=== PATIENT | female | born 1975 | race Caucasian/White ===

== ENCOUNTER → 2021-09-15 | Outpatient (CLI) | payer OTHER, SELFPAY ==
--- NOTE | 2021-09-14 15:30 | EMB_PTH ---
PATIENT: SVETA TOSCANO LOC: [facility] U#:[id number] AGE/SX: 45/F ROOM: RE09/15/[address]: Dr. Lamberto Orlando MD : 1975 BED: DIS: 09/15/2021 SPEC #: [id number] RECD: 09/14/21 17:02 STATUS: MICAH SELENE #: [id number] LIDA: 09/14/21 15:[address]: Lamberto Orlando DEPT: SURGICAL PATHOLOGY RECD BY: Savi Bradshaw Tissues: Endometrium, NOS Procedures: Surgery Specimen Level IV HEADER OPERATION: Endometrial biopsy PRE-OP DIAGNOSIS: N92.0 TISSUE SUBMITTED: Endometrial biopsy MICROSCOPIC DIAGNOSIS Endometrial biopsy: Early secretory endometrium. EDMOND:ernie 09/16/2021 MICROSCOPIC DESCRIPTION Slides are reviewed. GROSS DESCRIPTION Received in fixative is one container labeled with the patient's name and designated endometrial biopsy. The specimen consists of multiple irregular fragments of pink soft tissue that in aggregate measure 2.5 x 2 x 0.1 cm. The specimen is totally submitted in one cassette. / SJ:rg 09/15/2021 TC:4 CPT: 43253
== END | disposition home or self-care (01) ==
LOC: LABSPEC 09:01
PROVIDERS: Referring Provider Obstetrics & Gynecology; Visit Provider Obstetrics & Gynecology
DX: N92.0 Excessive and frequent menstruation with regular cycle (principal)
CPT/HCPCS: 88305

== ENCOUNTER → 2022-03-20 | Outpatient (CLI) | payer OTHER, SELFPAY ==
[2022-03-20 13:32] LABS: Hematocrit 39.6 % (37-47); Hemoglobin 13.2 g/dL (12.0-15.0); Mean Corp Hgb Conc 33.3 g/dL (32-36); Mean Corpuscular Hgb 32.8 pg (27.0-32.0); Mean Corpuscular Volume 98.3 fL (81-99); Mean Platelet Vol. 10.3 fl (6.2-12.0); Platelet Count 274 K/mm3 (150-450); RBC Distribution Width CV 12.8 % (11.6-14.6); RBC Distribution Width SD 46.1 fl (35.1-43.9); Red Blood Count 4.03 M/mm3 (4.2-5.4); White Blood Count 4.7 K/mm3 (4.4-11.0)
[2022-03-20 14:02] LABS: Follicle Stimulating Hormone 7.3 mIU/mL; Luteinizing Hormone 6.2 mIU/mL; Prolactin 2.9 ng/mL; T4 Free Direct 0.73 ng/dL (0.76-1.46); Thyroid Stim Hormone (TSH) 6.48 uIU/mL (0.358-3.74)
== END | disposition home or self-care (01) ==
LOC: WOBLAB 12:04
PROVIDERS: Visit Provider Student in an Organized Health Care Education/Training Program
DX: N93.9 Abnormal uterine and vaginal bleeding, unspecified (principal)
CPT/HCPCS: 36415; 83001; 83002; 84146; 84439; 84443; 85027

== ENCOUNTER → 2022-07-04 | Outpatient (CLI) | payer OTHER, SELFPAY ==
[2022-07-04 15:24] LABS: T4 Free Direct 1.01 ng/dL (0.76-1.46); Thyroid Stim Hormone (TSH) 3.61 uIU/mL (0.358-3.74)
[2022-07-06 15:33] LABS: Thyroid Peroxidase AB 108 IU/mL (0-34)
== END | disposition home or self-care (01) ==
LOC: WOBLAB 13:57
PROVIDERS: Visit Provider Student in an Organized Health Care Education/Training Program
DX: E03.9 Hypothyroidism, unspecified (principal)
CPT/HCPCS: 36415; 83001; 83002; 84439; 84443; 86376

== ENCOUNTER → 2022-10-31 | Outpatient (CLI) | payer OTHER, SELFPAY ==
[2022-10-31 11:18] LABS: Thyroid Stim Hormone (TSH) 7.75 uIU/mL (0.358-3.74)
== END | disposition home or self-care (01) ==
LOC: WOBLAB 10:03
PROVIDERS: Visit Provider Student in an Organized Health Care Education/Training Program
DX: E03.9 Hypothyroidism, unspecified (principal)
CPT/HCPCS: 36415; 84439; 84443

== ENCOUNTER 2025-04-08 08:04 | Day surgery (SDC) | payer OTHER, SELFPAY ==
[2025-04-08] VITALS (7 sets, daily range): BP systolic 108–118; BP diastolic 70–82; PULSE 70–77; RESP 16; TEMP 36.1–36.3; O2SAT 99–100; BMI 32.3
[2025-04-08] MEDS: Lactated Ringers 1,000 ML 15 ML IV (08:24)
--- NOTE | 2025-04-08 08:52 | HP.PCM_ITS ---
[facility] - General General Date of Admission: 04/08/25 Date of Service: 04/08/25 Chief Complaint: Abdominal pain HPI Narrative MARIANNA TOSCANO, is a 49 F who presents [Chief Complaint: abd pain Referred from primary care provider due to abdominal pain and bloating. Patient been on omeprazole for 1 month without relief. Patient endorsing about 6 years of upset stomach intermittently. She has diarrhea 2-3 times per week. Specific triggers include milk products. She has associated nausea and abdominal cramping. She also has epigastric pain for which she was treated with 1 month of omeprazole. She is no longer having epigastric pain. She denies blood in her stool or other alarm symptoms. She has never had a colonoscopy. She denies family history of colon cancer but notes that her father was diagnosed with Crohn's disease in his early 80s. ] [facility] Medical History Wears dentures Wears glasses History of steroid therapy Back pain History of echocardiogram History of stress test Cardiology follow-up encounter History of irregular heartbeat Trigger finger of right hand Finger pain, right Migraine Back problem Tubal occlusion Resting tremor Frantz's thyroiditis Multiple thyroid nodules Hypothyroid IBS (irritable bowel syndrome) Bloating Abdominal pain Home Medications ?Medication ?Instructions ?Recorded ?Last Taken ?Type levothyroxine 125 mcg capsule 125 mcg PO QDAY 02/09/25 04/08/25 History Allergy/AdvReac Type Severity Reaction Status Date / Time No Known Allergies Allergy Verified 04/08/25 08:21 Family History Father Crohn's disease Heart disease CVA (cerebral vascular accident) Thyroid disorder Crohn's colitis Mother Arthritis Thyroid disorder Tremor Dementia Sister Thyroid disorder Brother Thyroid disorder Surgical History History of cardiac catheterization H/O foot surgery Social History Smoking Status: Never smoker alcohol intake: never substance use type: does not use do you feel safe at home: Yes ROS Constitutional Constitutional: Denies fatigue, fever(s), poor appetite, weight gain or weight loss Gastrointestinal Gastrointestinal: Denies belching, bloating, change in bowel habits, change in stool character, chewing difficulty, coffee ground emesis, constipation, cramping, diarrhea, dyspepsia, dysphagia, early satiety, excessive flatus, fecal incontinence, heartburn, hematemesis, hematochezia, hemorrhoids, loose stools, melena, nausea, odynophagia, rectal bleeding, tenesmus, vomiting or weight changes Vital Signs Vital Signs Vital Signs: 04/08/25 08:21 04/08/25 08:21 04/08/25 08:21 Temperature 97.4 F L Temperature Source Temporal Pulse Rate 74 Respiratory Rate 16 Respiratory Pattern Normal Blood Pressure 113/82 H Blood Pressure Mean 92 Blood Pressure Source Monitor Blood Pressure Position Semi-Fowlers Blood Pressure Location Left Arm Baseline BP 113/82 Pulse Ox 100 Oxygen Delivery Method Room Air Weight Weight: 200 lb 9.93 oz Body Mass Index (BMI) 32.3 Physical Exam Const alert, oriented x3, no apparent distress and healthy appearing General Appearance: cooperative GI normal to inspection, nondistended, normoactive bowel sounds, soft to palpation, non-tender and non-distended Percussion: normal to percussion Rectal Exam: deferred Assessment & Plan Assessment/Plan (1) IBS (irritable bowel syndrome): (2) Abdominal pain: (3) Bloating: PLAN: Assessment and Plan Assessment and Plan (1) Abdominal pain: Status: Acute (2) IBS (irritable bowel syndrome): Status: Acute (3) Bloating: Status: Acute Plan: Marianna is a 49-year-old female patient with past medical history of thyroid disease here today for evaluation of GI symptoms over the past 6 years. Patient has complaints of intermittent flares of diarrhea happening 2-3 times per week typically after consuming dairy products. She has associated epigastric pain, abdominal pain and nausea. She denies alarm features such as blood in her stool or weight loss. She does note that her father was diagnosed with Crohn's disease but did not have symptoms. She denies family history of colon cancer. She has never had a colonoscopy. Patient will undergo colonoscopy and EGD for assessment of her lower and upper GI tract. Patient was agreeable to proceed will consider further workup and/or treatment pending results. - Colonoscopy - EGD - Follow-up after procedures
--- NOTE | 2025-04-08 08:58 | PCM.PRE.AN2 ---
ASA Classification* ASA Classification ASA Classification: 2 Assessment & Plan Anesthesia* Anesthesia Assessment Anesthesia Assessment: Discussed sedation and/or anesthesia options, risks, benefits, and alternatives with patient/parents/legal guardian/POA. Questions invited. The patient/parents/legal guardian/POA seems to understand and agrees to proceed with anesthesia plan. Reviewed the physical assessment, medical history, allergy history and patient home medications list prior to surgery/procedure/anesthetic and documented any changes. Performed airway and anesthesia risk assessments. Anesthesia Type Anesthesia Type: MAC History Source History Obtained from:: Patient and Chart Anesthesia Focused Assessment* Temperature: 97.4 F Pulse Rate: 74 Blood Pressure: 113/82 Respiratory Rate: 16 Pulse Ox: 100 Oxygen Delivery Method: Room Air Airway Assessment Mouth opens: >3 cm Mallampati Score: III Teeth Condition: Dentures (Patient has full upper and lower dentures. They will come out.) Neck Range of motion (ROM): Limited ROM (Slight Decrease) Labs Anesthesia Preop lab: CBC WBC, (4.4-11.0) 4.7 K/mm3 03/20/22, 12:05 RBC, (4.2-5.4) 4.03 M/mm3 L 03/20/22, 12:05 Hgb, (12.0-15.0) 13.2 g/dL 03/20/22, 12:05 Hct, (37-47) 39.6 % 03/20/22, 12:05 Plt Count, (150-450) 274 K/mm3 03/20/22, 12:05 CHEMISTRY TSH, (0.358-3.74) 7.75 uIU/mL H 10/31/22, 10:04 COAG Pre-Assessment Diagnosis/Proposed Procedure Planned Operative Procedure(s): COLONOSCOPY, EGD Anesthesia History Anesthesia History - voip technician: Anesthesia History - voip technician Hx Hospitalization No 04/07/25 08:47 Any Problems With Anesthesia Yes: SOB AFTER TUBAL 04/07/25 08:47 PROCEDURE FELT LIKE COULDN' T BREATHE Cholinesterase deficiency No 04/07/25 08:47 You/Your Family Experience No 04/07/25 08:47 fever (hyperthermia) with Relationship Recent Exposure to Contagious No 04/08/25 08:21 Disease Does patient have nerve No 04/07/25 08:47 stimulator Patient instructed to have device shut off --Does patient have Pacemaker No 04/08/25 08:21 or ICD? When Was Last Pacemaker Check QUESTION #4 FULL TEXT: You/Your Family Experience fever (hyperthermia) with Anesthesia Last Oral Intake Last Oral intake: Last Oral Intake NPO since 05:30 04/08/25 08:21 Meds taken in AM with sips of Yes 04/08/25 08:21 water? Meds patient instructed to LEVOTHYROXINE 04/08/25 08:21 take am of surgery Any additional information?: Yes NPO since: 05:30 (Patient had coffee at 5:30 AM.) Meds taken in AM with sips of water?: Yes PONV PONV - voip technician: PONV - voip technician Female Yes 04/07/25 08:47 HX of Motion Sickness No 04/07/25 08:47 HX of N/V After Surgery No 04/07/25 08:47 Non-Smoker Yes 04/07/25 08:47 Duration of Surgery greater No 04/07/25 08:47 than 60 minutes Number of Risk Factors 2 04/07/25 08:47 PONV Score Moderate Risk 04/07/25 08:47 Height & Weight Height & Weight: Anesthesia: Height & Weight Height 5 ft 6 in 04/08/25 08:21 Weight: 91 kg 04/08/25 08:21 Body Mass Index (BMI) 32.3 04/08/25 08:21 Respiratory Assessment Respiratory Assessment - voip technician: Respiratory Tract Infection Hx - voip technician Hx Respiratory Tract Infection No 04/07/25 08:47 STOP Sleep Apnea STOP Sleep Apnea - voip technician: STOP Sleep Apnea - voip technician Hx Hypertension No 04/07/25 08:47 Hx Sleep Apnea No 04/07/25 08:47 CPAP BIPAP Do you snore loudly (louder No 04/07/25 08:47 than talking or can be heard Do you often feel tired/ No 04/07/25 08:47 fatigued/ sleepy during daytime? Has anyone observed you stop No 04/07/25 08:47 breathing during sleep? STOP Results Negative 04/07/25 08:47 QUESTION #5 FULL TEXT : Do you snore loudly (louder than talking or can be heard through closed doors)? Tobacco Use History Tobacco Use History - voip technician: Tobacco Use History - voip technician Tobacco Use Smoking Status Never smoker 04/07/25 08:47 Hx Tobacco Use No 04/07/25 08:47 Years Smoking Packs Smoked per Day Smoking Cessation Date was within the last 15 years Hx Smoking Cessation Date Hx Smoking Cessation Counseling Hematologic Medial History Hematologic Hx - voip technician: Hematologic Medical Hx - unloader Hx of Blood Transfusion No 04/07/25 08:47 Hx of Transfusion in last 3 No 04/07/25 08:47 Months Date of Last Transfusion (if within last 3 months) Ever experience any problems No 04/07/25 08:47 with transfusion(s)? Specify any problems Hx of Preganancy in last 3 No 04/07/25 08:47 Months Nurse Filling Out Transfusion [email or web address] 04/07/25 08:47 & Questions: Date: 04/07/25 04/07/25 08:47 Time: 08:51 04/07/25 08:47 Patient unable to answer at this time (ie. confused, unrespo /Reproduction History /Reproductive History - voip technician: /Reproductive Hx- voip technician Hx Now No 04/07/25 08:47 Gestational Age (in weeks): EDC: Hx Hx Para Hx Section SAB No 04/07/25 08:47 Does the father of the baby or his family experience fever w Father of the baby Malignant Hypertension history comment Active Medications Active Medications: Current Medications Generic Name Dose Route Start Last Admin Trade Name Freq PRN Reason Stop Dose Admin Lactated Ringer's 1,000 mls @ 15 mls/hr 04/08/25 08:15 04/08/25 08:24 IV 15 mls/hr .Q48H PARESH Administration PFSH Medical History Wears dentures Wears glasses History of steroid therapy Back pain History of echocardiogram History of stress test Cardiology follow-up encounter History of irregular heartbeat Trigger finger of right hand Finger pain, right Migraine Back problem Tubal occlusion Resting tremor Frantz's thyroiditis Multiple thyroid nodules Hypothyroid IBS (irritable bowel syndrome) Bloating Abdominal pain Home Medications ?Medication ?Instructions ?Recorded ?Last Taken ?Type levothyroxine 125 mcg capsule 125 mcg PO QDAY 02/09/25 04/08/25 History Allergy/AdvReac Type Severity Reaction Status Date / Time No Known Allergies Allergy Verified 04/08/25 08:21 Family History Father Crohn's disease Heart disease CVA (cerebral vascular accident) Thyroid disorder Crohn's colitis Mother Arthritis Thyroid disorder Tremor Dementia Sister Thyroid disorder Brother Thyroid disorder Surgical History History of cardiac catheterization H/O foot surgery Social History Smoking Status: Never smoker alcohol intake: never substance use type: does not use do you feel safe at home: Yes Review of Systems (Anesthesia) ROS Narrative System reviewed and no additional complaints, except as documented.
--- NOTE | 2025-04-08 09:00 | COLBX_PTH ---
PATIENT: SVETA TOSCANO LOC: EN U#:[id number] AGE/SX: 49/F ROOM: RE04/08/[address]: Dr. Jim Pierce DO : 1975 BED: DIS: 04/08/2025 SPEC #: [id number] RECD: 04/08/25 11:20 STATUS: MICAH SELENE #: [id number] LIDA: 04/08/25 09:[address]: Jim Pierce DEPT: SURGICAL PATHOLOGY RECD BY: Maged Myers ENTERED: 04/08/25 15:40 SP TYPE: COLON BX OTHR DR: Dr. Lamberto Tabor MD Tissues: A - Duodenum, NOS B - Gastric mucous membrane C - Transverse colon D - SPLENIC FLEXURE Procedures: Surgery Specimen Level IV HEADER OPERATION: Colonoscopy, EGD, biopsy, polypectomy PRE-OP DIAGNOSIS: Abdominal pain, irritable bowel syndrome, bloating TISSUE SUBMITTED: A- Duodenum biopsy, B- Gastric body biopsy, C- Transverse polyp biopsy, D- Splenic flexure polyp MICROSCOPIC DIAGNOSIS A. Small intestine, duodenum, biopsy: Normal villous architecture with no specific pathologic change. negative for increased intraepithelial lymphocytes.B. Stomach, body, biopsy: Oxyntic mucosa with no specific pathologic change. Negative for Helicobacter-like organisms (H&E).C. Colon, transverse, polyp, polypectomy: Tubular adenoma.D. Colon, splenic flexure, polyp, polypectomy: Tubular adenoma. MICROSCOPIC DESCRIPTION Slides are reviewed. GROSS DESCRIPTION A. Received in fixative is one container labeled with the patient's name and designated Duodenum biopsy. The specimen consists of one irregular fragment of parkinson tissue that measures 0.3 cm. The specimen is totally submitted in one cassette. B. Received in fixative is one container labeled with the patient's name and designated Gastric body biopsy. The specimen consists of multiple irregular fragments of parkinson tissue that in aggregate measure 1.1 x 0.7 x 0.1 cm. The specimen is totally submitted in one cassette. C. Received in fixative is one container labeled with the patient's name and designated Transverse polyp biopsy. The specimen consists of one irregular fragment of parkinson tissue that measures 0.6 cm. The specimen is totally submitted in one cassette. D. Received in fixative is one container labeled with the patient's name and designated Splenic flexure polyp. The specimen consists of one irregular fragment of parkinson tissue, admixed floccular material that measures 0.5 cm. The specimen is totally submitted in one cassette. [place] 04/08/2025 CPT:16350i3
--- NOTE | 2025-04-08 10:16 | PCM.POST.ANE ---
Anesthesia: Postop Eval I Current Vital Signs Temperature: 97 F Pulse Rate: 77 Blood Pressure: 118/72 Respiratory Rate: 16 Pulse Ox: 100 Oxygen Delivery Method: Room Air Assessment Airway patent: Yes Spontaneous unlabored respirations: Yes Mental status: Asleep nausea: No Vomiting: No Anesthesia Complication: No Fluid Hydration Crystalloid volume administer (ml): 700 Total IV fluid infused: 700 Progress Note Anesthesia document: Postop Eval 1 completed: Yes
--- NOTE | 2025-04-08 10:21 | OP.COLON_ITS ---
Patient Name: Marianna Winchester Procedure Date: 04/08/2025 9:39 AM Date of : 1975 Age: 49 Procedure: Colonoscopy Indications: Screening for colorectal malignant neoplasm Providers: Jim Pierce DO Referring MD: Lamberto Tabor Medicines: Monitored Anesthesia Care Patient Profile: This is a 49 year old female. Refer to note in patient chart for documentation of history and physical. Last Colonoscopy: none. The patient's first colonoscopy is today. Complications: No immediate complications. Procedure: Pre-Anesthesia Assessment: - Prior to the procedure, a History and Physical was performed, and patient medications and allergies were reviewed. The patient is competent. The risks and benefits of the procedure and the sedation options and risks were discussed with the patient. All questions were answered and informed consent was obtained. Patient identification and proposed procedure were verified by the physician in the pre-procedure area. Mental Status Examination: alert and oriented. Airway Examination: normal oropharyngeal airway and neck mobility. Respiratory Examination: clear to auscultation. CV Examination: normal. Prophylactic Antibiotics: The patient does not require prophylactic antibiotics. Prior Anticoagulants: The patient has taken no anticoagulant or antiplatelet agents except for NSAID medication. ASA Grade Assessment: II - A patient with mild systemic disease. After reviewing the risks and benefits, the patient was deemed in satisfactory condition to undergo the procedure. The anesthesia plan was to use monitored anesthesia care (MAC). Immediately prior to administration of medications, the patient was re-assessed for adequacy to receive sedatives. The heart rate, respiratory rate, oxygen saturations, blood pressure, adequacy of pulmonary ventilation, and response to care were monitored throughout the procedure. The physical status of the patient was re-assessed after the procedure. After I obtained informed consent, the scope was passed under direct vision. Throughout the procedure, the patient's blood pressure, pulse, and oxygen saturations were monitored continuously. The Colonoscope was introduced through the anus and advanced to the terminal ileum. The colonoscopy was performed without difficulty. The patient tolerated the procedure well. The quality of the bowel preparation was adequate. The terminal ileum, ileocecal valve, appendiceal orifice, and rectum were photographed. Scope In: 9:40:19 AM Scope Withdrawal Time 0 hours 14 minutes 37 seconds Scope Out: 10:05:34 AM Total Procedure Duration Time 0 hours 25 minutes 15 seconds Findings: The perianal and digital rectal examinations were normal. A 10 mm polyp was found in the descending colon. The polyp was sessile. The polyp was removed with a hot snare. Resection and retrieval were complete. Verification of patient identification for the specimen was done. Estimated blood loss was minimal. A 5 mm polyp was found in the transverse colon. The polyp was sessile. The polyp was removed with a jumbo cold forceps. The polyp was removed with a cold snare. Resection and retrieval were complete. Verification of patient identification for the specimen was done. Estimated blood loss was minimal. The sigmoid colon, transverse colon and hepatic flexure were grossly tortuous. Impression: - One 10 mm polyp in the descending colon, removed with a hot snare. Resected and retrieved. - One 5 mm polyp in the transverse colon, removed with a cold snare and removed with a jumbo cold forceps. Resected and retrieved. - Tortuous colon. Recommendation: - Discharge patient to home. - Resume previous diet. - Continue present medications. - Await pathology results. - Repeat colonoscopy in 5 years for surveillance. Procedure Code(s): --- Professional --- 13924, Colonoscopy, flexible; with removal of tumor(s), polyp(s), or other lesion(s) by snare technique CPT copyright 2021 [employer]. All rights reserved. The codes documented in this report are preliminary and upon vulnerability researcher review may be revised to meet current compliance requirements. Jim Pierce DO 04/08/2025 10:20:50 AM This report has been signed electronically. Number of Addenda: 0 Note Initiated On: 04/08/2025 9:39 AM
--- NOTE | 2025-04-08 10:21 | OP.PROVAT_ITS ---
04/08/2025 Lamberto Tabor [address] [place] [address] [place] [address] Re : Colonoscopy procedure for Marianna Winchester Dear Dr. Tabor This procedure was performed on Tuesday, April 08, 2025. My impressions and recommendations are as follows: Impressions : - One 10 mm polyp in the descending colon, removed with a hot snare. Resected and retrieved. - One 5 mm polyp in the transverse colon, removed with a cold snare and removed with a jumbo cold forceps. Resected and retrieved. - Tortuous colon. Recommendations : - Discharge patient to home. - Resume previous diet. - Continue present medications. - Await pathology results. - Repeat colonoscopy in 5 years for surveillance. My findings are described in the full procedure note, which is enclosed. If I can be of further assistance, please feel free to contact me at . Sincerely, Jim Pierce, 04/08/2025 10:20:50 AM This report has been signed electronically.
--- NOTE | 2025-04-08 10:23 | OP.EGD_ITS ---
Patient Name: Marianna Winchester Procedure Date: 04/08/2025 9:20 AM Date of : 1975 Age: 49 Procedure: Upper GI endoscopy Indications: Epigastric abdominal pain Providers: Jim Pierce DO Referring MD: Lamberto Tabor Medicines: Monitored Anesthesia Care Patient Profile: This is a 49 year old female. Refer to note in patient chart for documentation of history and physical. Patient has symptoms of chronic abdominal cramping, chronic right upper quadrant abdominal pain and chronic epigastric abdominal pain. Complications: No immediate complications. Procedure: Pre-Anesthesia Assessment: - Prior to the procedure, a History and Physical was performed, and patient medications and allergies were reviewed. The patient is competent. The risks and benefits of the procedure and the sedation options and risks were discussed with the patient. All questions were answered and informed consent was obtained. Patient identification and proposed procedure were verified by the physician in the pre-procedure area. Mental Status Examination: alert and oriented. Airway Examination: normal oropharyngeal airway and neck mobility. Respiratory Examination: clear to auscultation. CV Examination: normal. Prophylactic Antibiotics: The patient does not require prophylactic antibiotics. Prior Anticoagulants: The patient has taken no anticoagulant or antiplatelet agents except for NSAID medication. ASA Grade Assessment: II - A patient with mild systemic disease. After reviewing the risks and benefits, the patient was deemed in satisfactory condition to undergo the procedure. The anesthesia plan was to use monitored anesthesia care (MAC). Immediately prior to administration of medications, the patient was re-assessed for adequacy to receive sedatives. The heart rate, respiratory rate, oxygen saturations, blood pressure, adequacy of pulmonary ventilation, and response to care were monitored throughout the procedure. The physical status of the patient was re-assessed after the procedure. After obtaining informed consent, the endoscope was passed under direct vision. Throughout the procedure, the patient's blood pressure, pulse, and oxygen saturations were monitored continuously. The Colonoscope was introduced through the mouth, and advanced to the fourth part of the duodenum. Small bowel enteroscopy was deemed necessary. The upper GI endoscopy was accomplished without difficulty. The patient tolerated the procedure well. Scope In: 9:35:47 AM Scope Out: 9:39:06 AM Total Procedure Duration Time 0 hours 3 minutes 19 seconds Findings: Non-severe esophagitis with no bleeding was found 35 to 37 cm from the incisors. Patchy mildly erythematous mucosa without bleeding was found in the gastric body. Biopsies were taken with a cold forceps for histology. Biopsies were taken with a cold forceps for Helicobacter pylori testing. Patchy mildly erythematous mucosa without active bleeding and with no stigmata of bleeding was found in the entire duodenum. Biopsies were taken with a cold forceps for histology. Impression: - Non-severe reflux esophagitis with no bleeding. - Erythematous mucosa in the gastric body. Biopsied. - Erythematous duodenopathy. Biopsied. Recommendation: - Await pathology results. - Continue present medications. Procedure Code(s): --- Professional --- 48966, Small intestinal endoscopy, enteroscopy beyond second portion of duodenum, not including ileum; with biopsy, single or multiple CPT copyright 2021 [employer]. All rights reserved. The codes documented in this report are preliminary and upon slot machine mechanic review may be revised to meet current compliance requirements. Jim Pierce DO 04/08/2025 10:23:13 AM This report has been signed electronically. Number of Addenda: 0 Note Initiated On: 04/08/2025 9:20 AM
--- NOTE | 2025-04-08 10:23 | OP.PROVAT_ITS ---
04/08/2025 Lamberto Tabor [address] [place] [address] [place] [address] Re : Upper GI endoscopy procedure for Marianna W[place]ster Dear Dr. Tabor This procedure was performed on Tuesday, April 08, 2025. My impressions and recommendations are as follows: Impressions : - Non-severe reflux esophagitis with no bleeding. - Erythematous mucosa in the gastric body. Biopsied. - Erythematous duodenopathy. Biopsied. Recommendations : - Await pathology results. - Continue present medications. My findings are described in the full procedure note, which is enclosed. If I can be of further assistance, please feel free to contact me at . Sincerely, Jim Pierce, 04/08/2025 10:23:13 AM This report has been signed electronically.
--- NOTE | 2025-04-08 21:52 | PCM.POSTANE2 ---
Anesthesia Postop Eval I Sum Postop Eval Completion status Anesthesia document: Postop Eval 1 completed: Yes Anesthesia Postop Eval I Summary Anesthesia Postop Eval I Summary: Anesthesia Postop Eval I: Assessment Summary Airway patent Yes 04/08/25 10:17 [email or web address] Spontaneous unlabored Yes 04/08/25 10:17 [email or web address] respirations Mental status Asleep 04/08/25 10:17 [email or web address] nausea No 04/08/25 10:17 [email or web address] Vomiting No 04/08/25 10:17 [email or web address] Anesthesia Postop Eval I: Fluid Summary Crystalloid volume administer 700 04/08/25 10:17 [email or web address] (ml) Colloids volume administered ( ml) Blood Product volume administered (ml) Total IV fluid infused 700 04/08/25 10:17 [email or web address] Anesthesia Postop Eval I: Summary Notes Anesthesia Complication No 04/08/25 10:17 [email or web address] Anesthesia Complication Comment: Post-operative progress note Anesthesia: Postop Eval II Evaluation Mental status: Awake and Calm Pain Level: 0 nausea: No Vomiting: No Complications Anesthesia Complication: No
== END 2025-04-08 11:16 | disposition home or self-care (01) ==
LOC: EN 08:09 → AC 08:10
PROVIDERS: PCP Family Medicine; Referring Provider Family Medicine; Visit Provider Internal Medicine Gastroenterology
PROC: 0DJD8ZZ Inspection of Lower Intestinal Tract, Via Natural or Artificial Opening Endoscopic (ICD-10-PCS; CPT 45378; principal; 2025-04-08 08:55)
DX: D12.3 Benign neoplasm of transverse colon (principal); K21.00 Gastro-esophageal reflux disease with esophagitis, without bleeding; K58.9 Irritable bowel syndrome, unspecified; Z79.899 Other long term (current) drug therapy; E03.9 Hypothyroidism, unspecified; Z79.890 Hormone replacement therapy
CPT/HCPCS: 44361; 45385; 45380; 88305; J2405